=== PATIENT | female | born 2000 | race African-American/Black ===

== ENCOUNTER 2021-01-30 05:20 | Inpatient (IN) ==
[2021-01-30] MEDS ORDERED: BUTORPHANOL 2 MG/ML VIAL IV ONE (05:43)
[2021-01-30] MEDS ORDERED: ONDANSETRON 4 MG/2 ML VIAL IV ONE ×2 (05:44→07:46)
[2021-01-30] MEDS ORDERED: BUTORPHANOL 1 MG/ML VIAL IV ONE (05:46)
[2021-01-30] MEDS ORDERED: BUTORPHANOL 1 MG/ML VIAL ONE (05:48)
[2021-01-30] MEDS: LACTATED RINGERS 1,000 ML IV SCH ×2 (06:05→07:56)
[2021-01-30] MEDS ORDERED: ONDANSETRON 4 MG/2 ML VIAL IV PRN ×2 (07:44→12:27)
[2021-01-30] MEDS ORDERED: hydrOXYzine HCL 25 MG/1 ML VIAL IM PRN (07:46)
[2021-01-30] MEDS ORDERED: CITRIC ACID/SODIUM CITRATE 30 ML UDCUP PO ONE (07:46)
[2021-01-30] MEDS ORDERED: diphenhydrAMINE 50 MG/1 ML VIAL IV PRN ×2 (07:46)
[2021-01-30] MEDS ORDERED: PROMETHAZINE 25 MG/1 ML VIAL IM ONE (07:46)
[2021-01-30] MEDS ORDERED: NALOXONE 0.4 MG/ML VIAL IV PRN (07:46)
[2021-01-30] MEDS ORDERED: FAMOTIDINE 20 MG/2 ML VIAL IV ONE (07:46)
[2021-01-30] MEDS ORDERED: ePHEDrine 50 MG/ML VIAL IV PRN (07:46)
[2021-01-30] MEDS ORDERED: LACTATED RINGERS 1,000 ML IV SCH (08:00)
[2021-01-30] MEDS ORDERED: fentaNYL 2 MCG/ROPIV 0.2% EPID 100 ML EPIDURAL SCH (08:00)
[2021-01-30 08:08] LABS: Basophils % 0.2 % (0.0-0.8); Eosinophils % 0.2 % (0.00-10.9); Hematocrit 34.3 VOL% (35.7-47.0); Hemoglobin 11.3 GM/DL (12.0-16.0); Immature Granulocytes % 0.8 %; Immature Granulocytes Absolute 0.08 #; Lymphocytes # 2.5 10*3/uL (1.4-4.0); Lymphocytes % 23.6 % (21.3-54.2); Mean Corpuscular HGB Conc 32.9 GM/DL (32-36); Mean Corpuscular Volume 91.2 FL (87-102); Mean Platelet Volume 12.9 FL (9.6-12.0); Monocytes % 10.7 % (1.7-12.7); Neutrophils % 64.5 % (38.7-73.9); Platelet Count 131 T/CUMM (130-400); Red Blood Count 3.76 MC/CUMM (3.8-5.5); Red Cell Distribution Width 13.8 % (9.3-17.3); White Blood Count 10.6 T/CUMM (4-12)
[2021-01-30 08:09] LABS: Bilirubin,Urine Negative (Negative); Blood, Urine Negative (Negative); Glucose,Urine (UA) Negative (Negative); Ketones,Urine Negative (Negative); Mucus,Urine Occasional /LPF (Occasional); Nitrite,Urine Negative (Negative); Protein,Urine Negative; RBC,Urine 1 /HPF (0-4); Squamous Epithelial Cell,Urine Occasional /HPF (0-10); Urine Appearance Slightly Hazy (Clear); Urine Color Yellow (Yellow); Urine Specific Gravity 1.009 (1.001-1.035); Urine Urobilinogen < 2.0 EU/DL (0.2-1.0)
[2021-01-30 08:30] LABS: Albumin 2.6 G/DL (3.4-5.0); Bilirubin,Total 0.9 MG/DL (0.20-1.00); Osmolality,Calculated 273.5 MOS/KG (273-304); Potassium 3.5 MMOL/L (3.5-5.1); Total Protein 6.6 G/DL (6.4-8.2)
[2021-01-30 09:10] LABS: Lymphocytes 24 % (20-55); Platelet Estimate Adequate; Segmented Neutrophils 67 % (50-85); Total Cells Counted 100
[2021-01-30] MEDS ORDERED: OXYTOCIN/LR 20 UNIT/1,000 ML BAG IV SCH (09:30)
[2021-01-30] MEDS ORDERED: METHYLERGONOVINE 0.2 MG/1 ML AMP ONE (09:56)
[2021-01-30] MEDS ORDERED: CARBOPROST TROMETHAMINE 250 MCG/ML AMP IM ONE (09:56)
[2021-01-30] MEDS ORDERED: miSOPROStoL 200 MCG TABLET ONE (09:56)
[2021-01-30] MEDS ORDERED: TRANEXAMIC ACID 1,000 MG/10 ML VIAL ONE (09:56)
[2021-01-30 12:09] LABS: Cord Arterial Blood HCO3 25.3 MMOL/L
[2021-01-30 12:11] LABS: Cord Venous Blood HCO3 22.2 MMOL/L; Cord Venous Blood PO2 25.5 MMHG
[2021-01-30] MEDS ORDERED: WITCH HAZEL PADS 100/JAR TOP PRN (12:27)
[2021-01-30] MEDS ORDERED: OXYTOCIN/LR 20 UNIT/1,000 ML BAG IV ONE (12:27)
[2021-01-30] MEDS ORDERED: BENZOCAINE 20%/MENTHOL 0.5% SPRAY 56 GM CAN TOP PRN (12:27)
[2021-01-30] MEDS ORDERED: LANOLIN 50% CREAM 0.3 OZ TUBE TOP PRN (12:27)
[2021-01-30] MEDS ORDERED: MEASLES/MUMPS/RUBELLA VACCINE 0.5 ML VIAL SUBCUT ONE (12:27)
[2021-01-30] MEDS ORDERED: ACETAMINOPHEN 325 MG TABLET PO PRN (12:27)
[2021-01-30] MEDS ORDERED: HYDROCORTISONE 2.5% RECTAL CREAM 30 GM TUBE TOP PRN (12:27)
[2021-01-30] MEDS ORDERED: BISACODYL 10 MG SUPP RECTAL PRN (12:27)
[2021-01-30] MEDS ORDERED: DIPH/TET/ACEL PERT BOOSTER VACCINE 0.5 ML VIAL IM ONE (12:27)
[2021-01-30] MEDS ORDERED: RHO(D) IMMUNE GLOBULIN 300 MCG SYRINGE IM ONE (12:27)
[2021-01-30] MEDS: IBUPROFEN 800 MG TABLET PO PRN (20:04)
[2021-01-30] MEDS: oxyCODONE/ACETAMINOPHEN 5-325 MG TABLET PO PRN (22:00)
[2021-01-30] MEDS: DOCUSATE SODIUM 100 MG CAPSULE PO SCH (22:01)
[2021-01-31 06:25] LABS: Basophils % 0.2 % (0.0-0.8); Eosinophils # 0.1 10*3/uL (0.0-0.87); Eosinophils % 0.4 % (0.00-10.9); Hematocrit 25.2 VOL% (35.7-47.0); Hemoglobin 8.3 GM/DL (12.0-16.0); Immature Granulocytes % 0.7 %; Immature Granulocytes Absolute 0.08 #; Lymphocytes # 2.4 10*3/uL (1.4-4.0); Mean Corpuscular HGB Conc 32.9 GM/DL (32-36); Mean Corpuscular Volume 92.6 FL (87-102); Mean Platelet Volume 13.1 FL (9.6-12.0); Monocytes % 9.5 % (1.7-12.7); Neutrophils % 68.2 % (38.7-73.9); Platelet Count 105 T/CUMM (130-400); Red Blood Count 2.72 MC/CUMM (3.8-5.5); White Blood Count 11.6 T/CUMM (4-12)
[2021-01-31 06:44] LABS: Hypochromasia Slight; Microcytosis Slight; Platelet Estimate Decreased
[2021-01-31] MEDS: oxyCODONE/ACETAMINOPHEN 5-325 MG TABLET PO PRN ×2 (07:06→16:41)
[2021-01-31] MEDS: IRON (CARBONYL)/VIT C/B12/FA TABLET PO SCH (08:54)
[2021-01-31] MEDS: DOCUSATE SODIUM 100 MG CAPSULE PO SCH ×2 (08:54→20:39)
[2021-01-31] MEDS: IBUPROFEN 800 MG TABLET PO PRN (16:41)
[2021-02-01] MEDS: oxyCODONE/ACETAMINOPHEN 5-325 MG TABLET PO PRN (03:09)
[2021-02-01] MEDS: IBUPROFEN 800 MG TABLET PO PRN (03:10)
[2021-02-01] MEDS: IRON (CARBONYL)/VIT C/B12/FA TABLET PO SCH (09:15)
[2021-02-01] MEDS: DOCUSATE SODIUM 100 MG CAPSULE PO SCH (09:15)
[2021-02-01 12:46] VITALS: BP 134/84
== END 2021-02-01 13:15 | disposition home or self-care (01) | DRG 560 ==
LOC: N.LDOUT 05:20 → N.LD 05:39 → N.OB 14:44
PROVIDERS: ADMIT Specialist; ATTEND Specialist